=== PATIENT | female | born 1985 | race Caucasian/White ===

== ENCOUNTER 2017-05-05 21:07 | Emergency (ER) | payer OTHER | END 2017-05-05 23:16 | disposition home or self-care (01) | LOC: FER 21:07 | DX: L02.215 Cutaneous abscess of perineum (principal); L03.315 Cellulitis of perineum; F17.210 Nicotine dependence, cigarettes, uncomplicated; Z86.14 Personal history of Methicillin resistant Staphylococcus aureus infection; Z98.890 Other specified postprocedural states | CPT/HCPCS: 87070; 87205; 90471; 90715 ==